=== PATIENT | male | born 1950 | race Caucasian/White ===

== ENCOUNTER 2019-03-04 12:56 | Emergency (ER) | payer MEDICARE, BC ==
--- NOTE | 2019-03-04 13:14 | CR ---
EXAMINATION: Chest 1V Frontal SEX: Male AGE: 68 years CLINICAL HISTORY: 68-year-old male emergency department with chest pain. INTERPRETATION: 1. Lordotic upright AP portable chest film unremarkable and unchanged since previous exam April 2018. 2. Arthritic changes dorsal spine. 3. Ectasia dorsal aorta. 4. No new signs of lung mass, hilar lymphadenopathy or focal lobar pneumonia despite less than optimal inspiratory effort. 5. No atelectasis/collapse. No pneumothorax. 6. Normal cardiac silhouette without cephalization of vascular flow, alveolar edema or dependent pleural fluid accumulation. CONCLUSION: No acute new cardiopulmonary abnormality.
[2019-03-04] MEDS ORDERED: Aspirin 81 MG Tab.Chew PO ONE (13:34)
[2019-03-04 13:39] LABS: ANION GAP 13.7; CHLORIDE,CL 102 mmol/L (101-111); SODIUM,NA 139 mmol/L (135-145)
--- NOTE | 2019-03-04 14:20 | CT ---
EXAMINATION: Head wo Cont SEX: Male AGE: 68 years CLINICAL HISTORY: 68-year-old hypertensive male emergency department complaining of dizziness. No known trauma. Scan technique: Volume acquisition of data emergency unenhanced CT scan of the head and brain obtained with patient lying supine on the Siemens multi slice scanner [facility]. All data archived in the PACS system for storage, reformatting axial/sagittal/coronal planes and study. INTERPRETATION: 1. Symmetric clear pneumatization of the paranasal and mastoid sinuses. 2. *Subtle microvascular ischemic changes in the periventricular white matter left cerebral hemisphere appear chronic. 3. No supratentorial or posterior fossa mass lesion. Mild atrophy. No hydrocephalus. 4. Uniformly thick bony calvarium without sign of brain contusion or epidural/subdural hematoma. 5. No evidence of acute intracerebral/intraventricular/subarachnoid bleed. 6. Arteriovascular calcifications base of the brain. Physiologic midline pineal calcifications. 7. Cerebellum and brainstem unremarkable. CONCLUSION: Subtle microvascular ischemic changes. Otherwise negative unenhanced emergency CT scan head and brain.
--- NOTE | 2019-03-04 17:01 | EDM.PDOC ---
ED HPI GENERAL MEDICAL PROBLEM - General Chief Complaint: Chest Pain Stated Complaint: DIZZY AND SWEATING Time Seen by Provider: 03/04/19 13:05 Source of Information: Reports: Patient History Limitations: Reports: No Limitations - History of Present Illness INITIAL COMMENTS - FREE TEXT/NARRATIVE: ED with c/o feeling dizzy and sweaty, First episode while getting out of truck and walking into store, , No spinning sensation reported things ildefonso went black for a second. Able to get back to car and drive home. Brief episode when driving him here. No chest pain or palpitations.l no SOB. No weakness. No difficulty with balance or change in speech. No recent URI, Driving yesterday for approximately 8 hours. No headaches. Onset: Today Duration: Resolved Prior to Arrival - Related Data Allergies Allergy/AdvReac Type Severity Reaction Status Date / Time No Known Allergies Allergy Verified 04/25/18 09:58 Past Medical History Cardiovascular History: Reports: Heart Murmur, High Cholesterol, Hypertension, Other (See Below) Other Cardiovascular History: "leaky valve" Musculoskeletal History: Reports: Gout Social & Family History - Tobacco Use Smoking Status *Q: Former Smoker Years of Tobacco use: 10 Used Tobacco, but Quit: Yes Month/Year Tobacco Last Used: 1975 - Caffeine Use Caffeine Use: Reports: Coffee Other Caffeine Use: 2-3 Cups - Recreational Drug Use Recreational Drug Use: No ED ROS GENERAL - Review of Systems Review Of Systems: ROS reveals no pertinent complaints other than HPI. ED EXAM, DIZZINESS - Physical Exam Exam: See Below Exam Limited By: No Limitations General Appearance: Alert, No Apparent Distress Eye Exam: Bilateral Eye: EOMI, PERRL (4) Ears: Normal External Exam, Hearing Grossly Normal, Normal TMs Nose: Normal Inspection Throat/Mouth: Normal Inspection, Normal Lips, Normal Voice, Other (No facial droop) Head Exam: Atraumatic, Normocephalic Vertigo: No: reproducible Neck: Normal Inspection, Full Range of Motion Cardiovascular: Normal Peripheral Pulses, Regular Rate, Rhythm, No JVD, Systolic Murmur, Other GI/Abdominal: Normal Bowel Sounds, Soft Neurological: Alert, Normal Mood/Affect, CN II-XII Intact, No Motor/Sensory Deficits, Oriented x 3. No: Abnormal Sensation, Tremor, Difficulty Walking Back Exam: Normal Inspection Extremities: Normal Inspection, Normal Range of Motion Psychiatric: Normal Affect, Normal Mood Skin Exam: Warm, Dry, Intact, Normal Color Course - Vital Signs Last Recorded V/S: Last Vital Signs Temp 97.9 F 03/04/19 15:00 Pulse 77 03/04/19 17:00 Resp 16 03/04/19 17:00 BP 122/71 03/04/19 17:00 Pulse Ox 96 03/04/19 17:00 Orthostatic Blood Pressure [ 138/90 Standing] Orthostatic Blood Pressure [ 130/86 Sitting] Orthostatic Blood Pressure [ 122/79 Supine] - Orders/Labs/Meds Orders: Active Orders 24 hr Category Date Time Status EKG 12 Lead [EKG Documentation Completion] [RC] URGENT Care 03/04/19 12:59 Active EKG Documentation Completion [RC] URGENT Care 03/04/19 17:42 Active Glucose [Blood Glucose Check, Bedside] [RC] ONETIME Care 03/04/19 13:21 Active Orthostatic Vital Signs [RC] ASDIRECTED Care 03/04/19 14:10 Active Labs: Laboratory Tests 03/04/19 03/04/19 03/04/19 Range/Units 13:12 13:12 13:12 WBC 6.3 (5.0-10.0) 10^3/uL RBC 4.72 (4.6-6.2) 10^6/uL Hgb 14.9 (14.0-18.0) g/dL Hct 43.3 (40.0-54.0) % MCV 91.7 (80-100) fL MCH 31.6 (27.0-34.0) pg MCHC 34.4 (33.0-35.0) g/dL Plt Count 191 (150-450) 10^3/uL Neut % (Auto) 52.7 (42.2-75.2) % Lymph % (Auto) 30.2 (20.5-50.1) % Lucas % (Auto) 11.7 H (2-8) % Eos % (Auto) 4.8 H (1.0-3.0) % Baso % (Auto) 0.6 (0.0-1.0) % D-Dimer, Quantitative 205 (0-400) ng/mL Sodium 139 (135-145) mmol/L Potassium 3.7 (3.6-5.0) mmol/L Chloride 102 (101-111) mmol/L Carbon Dioxide 27.0 (21.0-31.0) mmol/L Anion Gap 13.7 BUN 19 H (7-18) mg/dL Creatinine 1.1 (0.6-1.3) mg/dL Est Cr Clr Drug Dosing 57.19 mL/min Estimated GFR (MDRD) > 60 BUN/Creatinine Ratio 17.27 Glucose 95 (74-105) mg/dL POC Glucose (70-105) mg/dl Calcium 8.9 (8.4-10.2) mg/dl Total Bilirubin 0.8 (0.2-1.0) mg/dL AST 20 (10-42) IU/L ALT 22 (10-60) IU/L Alkaline Phosphatase 58 (42-121) IU/L CK-MB (CK-2) (0.4-4.7) ng/mL Troponin I < 0.02 (0.00-0.02) ng/ml B-Natriuretic Peptide < 5 (0-100) pg/ml Total Protein 7.2 (6.7-8.2) g/dl Albumin 4.3 (3.2-5.5) g/dl Globulin 2.9 Albumin/Globulin Ratio 1.48 03/04/19 03/04/19 03/04/19 Range/Units 13:12 13:24 17:45 WBC (5.0-10.0) 10^3/uL RBC (4.6-6.2) 10^6/uL Hgb (14.0-18.0) g/dL Hct (40.0-54.0) % MCV (80-100) fL MCH (27.0-34.0) pg MCHC (33.0-35.0) g/dL Plt Count (150-450) 10^3/uL Neut % (Auto) (42.2-75.2) % Lymph % (Auto) (20.5-50.1) % Lucas % (Auto) (2-8) % Eos % (Auto) (1.0-3.0) % Baso % (Auto) (0.0-1.0) % D-Dimer, Quantitative (0-400) ng/mL Sodium (135-145) mmol/L Potassium (3.6-5.0) mmol/L Chloride (101-111) mmol/L Carbon Dioxide (21.0-31.0) mmol/L Anion Gap BUN (7-18) mg/dL Creatinine (0.6-1.3) mg/dL Est Cr Clr Drug Dosing mL/min Estimated GFR (MDRD) BUN/Creatinine Ratio Glucose (74-105) mg/dL POC Glucose 85 (70-105) mg/dl Calcium (8.4-10.2) mg/dl Total Bilirubin (0.2-1.0) mg/dL AST (10-42) IU/L ALT (10-60) IU/L Alkaline Phosphatase (42-121) IU/L CK-MB (CK-2) 1.50 (0.4-4.7) ng/mL Troponin I < 0.02 (0.00-0.02) ng/ml B-Natriuretic Peptide (0-100) pg/ml Total Protein (6.7-8.2) g/dl Albumin (3.2-5.5) g/dl Globulin Albumin/Globulin Ratio Meds: Medications Discontinued Medications Generic Name Dose Route Start Last Admin Trade Name Alessandroq PRN Reason Stop Dose Admin Aspirin 324 mg 03/04/19 13:34 03/04/19 13:41 Aspirin PO 03/04/19 13:35 324 mg ONETIME ONE Administration - Radiology Interpretation Free Text/Narrative:: Head CT, microvascular changes, No acute findings. - Re-Assessments/Exams Free Text/Narrative Re-Assessment/Exam: Initial BP on presentation elevated Remainder wnl. No ectopy. Patient observed. Lab and EKG repeated. No recurrence of symptoms. Orthostatic BP WNL. Findings discussed with patient and . Recommend follow up next week with PCP and cardiology. Urgent follow up if recurrence of symptoms Departure - Departure Time of Disposition: 18:23 Disposition: Home, Self-Care 01 Condition: Good Clinical Impression: Dizziness, History of aortic valve stenosis - Discharge Information *PRESCRIPTION DRUG MONITORING PROGRAM REVIEWED*: Not Applicable *COPY OF PRESCRIPTION DRUG MONITORING REPORT IN PATIENT LEE: Not Applicable Instructions: Dizziness Forms: ED Department Discharge Additional Instructions: light activity encourage fluids x 24 hours follow up if symptoms worsen, weakness, nausea vomiting, headache etc no driving at least 24 hours - My Orders Last 24 Hours: My Active Orders 03/04/19 12:59 EKG 12 Lead [EKG Documentation Completion] [RC] URGENT 03/04/19 13:21 Glucose [Blood Glucose Check, Bedside] [RC] ONETIME 03/04/19 14:10 Orthostatic Vital Signs [RC] ASDIRECTED 03/04/19 17:42 EKG Documentation Completion [RC] URGENT - Assessment/Plan Last 24 Hours: My Active Orders 03/04/19 12:59 EKG 12 Lead [EKG Documentation Completion] [RC] URGENT 03/04/19 13:21 Glucose [Blood Glucose Check, Bedside] [RC] ONETIME 03/04/19 14:10 Orthostatic Vital Signs [RC] ASDIRECTED 03/04/19 17:42 EKG Documentation Completion [RC] URGENT
== END 2019-03-04 18:35 | disposition home or self-care (01) ==
LOC: DL.ED 12:56
DX: R42 Dizziness and giddiness (principal); I10 Essential (primary) hypertension; Z86.79 Personal history of other diseases of the circulatory system; Z87.891 Personal history of nicotine dependence
CPT/HCPCS: 36415; 70450; 71045; 80053; 82553; 82962; 83880; 84484; 85025; 85379; 93005; 99285; A9270